=== PATIENT | male | born 1975 | race Hispanic/Latino ===

== ENCOUNTER → 2018-07-19 | Outpatient (CLI) | payer OTHER ==
--- NOTE | 2018-07-20 14:24 | ECHO ---
DATE OF PROCEDURE: 07/19/2018 DATE OF : 1975 AGE: 42 GENDER: Male HEIGHT: 68 inches WEIGHT: 215 pounds BODY SURFACE AREA: 2.11 m2 OUTPATIENT REFERRING PHYSICIAN: Dr. Tuan Gross INDICATION: Hypertensive heart disease. MEASUREMENTS: 2-D Measurements: RV: 4.0 cm LV: 4.8 cm Septum: 1.2 cm Posterior wall: 1.2 cm Aortic root: 3.0 cm LA: 4.0 cm LVEF: 65% Doppler Measurements: AV: 1.24 m/s LVOT: 0.94 m/s LVOT diameter: 2.0 cm MV: E: 65, A: 47, EA ratio: 1.4 Early mitral deceleration time: 197 ms E prime: 5.3, A prime: 9 E/E prime ratio: 12.2 PV: 1.1 m/s Pulmonary artery acceleration time: 158 ms RVSP: 23 mmHg COMMENTS: Normal sinus rhythm without intraventricular conduction disturbance. Slightly challenging study in light of the patient's body habitus but diagnostically useful information was still obtained. M-mode and two-dimensional echocardiography was performed with pulsed, continuous wave, color flow and tissue Doppler studies. Borderline concentric left ventricle hypertrophy with normal wall motion. Mildly dilated left atrium with an impairment of LV diastolic function but currently normal estimated mean left atrial pressure. Normal right heart chamber sizes and motion and estimated pulmonary arterial pressure. His inferior vena cava could not be visualized to accurately estimate his central venous pressure. An assumed central venous pressure of 7 mmHg was used to determine his right ventricular systolic pressure. Normal appearing and functioning valvular structures. Normal aortic root size. No apparent intracardiac mass or pericardial effusion. MTDD
== END ==
LOC: M CARPUL 09:40
PROVIDERS: ATTEND Internal Medicine
DX: I11.9 Hypertensive heart disease without heart failure (principal)

== ENCOUNTER → 2021-05-12 | Outpatient (CLI) | payer OTHER ==
[2021-05-12 10:41] LABS: BASO # 0.1 10^3/uL (0.0-0.2); BASO % 1.2 % (0.0-1.0); EOS # 0.2 10^3/uL (0.0-0.5); EOS % 2.9 % (0.0-3.0); HEMATOCRIT 47.7 % (42.0-52.0); HEMOGLOBIN 15.7 g/dl (13.5-17.5); LYMPH # 2.3 10^3/uL (1.5-5.0); LYMPH % 34.8 % (24.0-44.0); MEAN CORPUSCULAR HEMOGLOBIN 29.1 pg (27.0-33.0); MEAN CORPUSCULAR HGB CONC 32.9 g/dl (32.0-36.5); MEAN CORPUSCULAR VOLUME 88.3 fl (80.0-96.0); MONO # 0.5 10^3/uL (0.0-0.8); MONO % 7.8 % (2.0-8.0); NEUTROPHILS # 3.5 10^3/uL (1.5-8.5); NEUTROPHILS % 52.8 % (36.0-66.0); PLATELET COUNT, AUTOMATED 226 10^3/uL (150-450); WHITE BLOOD COUNT 6.6 10^3/uL (4.0-10.0)
[2021-05-12 12:40] LABS: ALBUMIN 4.2 GM/DL (3.2-5.2); ALT/SGPT 54 U/L (12-78); BILIRUBIN,TOTAL 0.6 MG/DL (0.2-1.0); BLOOD UREA NITROGEN 13 MG/DL (7-18); CALCIUM LEVEL 9.4 MG/DL (8.5-10.1); CARBON DIOXIDE LEVEL 30 MEQ/L (21-32); CHLORIDE LEVEL 108 MEQ/L (98-107); GLOMERULAR FILTRATION RATE > 60.0 (>60); GLUCOSE, FASTING 90 MG/DL (70-100); SODIUM LEVEL 144 MEQ/L (136-145); TOTAL PROTEIN 7.8 GM/DL (6.4-8.2)
[2021-05-13 10:31] LABS: THYROID PEROXIDASE ANTIBODY 31.5 U/ML (<60.0)
== END ==
LOC: M LAB 08:36
PROVIDERS: ATTEND Allergy & Immunology
DX: L50.1 Idiopathic urticaria (principal); R53.81 Other malaise

== ENCOUNTER → 2022-08-16 | Outpatient (REF) | payer OTHER | LOC: M LABSMT 10:44 | PROVIDERS: ATTEND Urology | DX: Z30.2 Encounter for sterilization (principal) ==

== ENCOUNTER 2023-05-16 15:42 | Emergency (ER) | payer OTHER ==
[~2023-05-16] VITALS: Ht 172.7 cm; Wt 97.5 kg
[2023-05-16] MEDS ORDERED: dexAMETHasone 20MG/5ML VIAL IM ONE (16:55)
[2023-05-16] MEDS ORDERED: IBUPROFEN 600MG TAB PO ONE (16:55)
[2023-05-16] MEDS ORDERED: AMOX500T PO (17:01)
[2023-05-16] MEDS ORDERED: AMOXICILLIN 500 MG CAP PO ONE (17:05)
[2023-05-16 17:15] VITALS: BP 141/88; TEMP 99.5; O2SAT 97
== END 2023-05-16 17:16 | disposition home or self-care (01) ==
LOC: M ED 15:42
DX: J02.0 Streptococcal pharyngitis (principal); Z79.2 Long term (current) use of antibiotics
CPT/HCPCS: 87486; 87581; 87633; 87798; 87880; 96372; 99283; J1100

== ENCOUNTER → 2025-03-18 | Outpatient (REF) | payer MEDICAID, OTHER ==
[~2025-03-18] MED LIST: AMOX500T PO; FAMO20TA PO; FEXO-63 PO; HYDR-3363 PO; PRAV80TA75 PO; PRES10CA2 PO; VITA100093 PO
== END ==
LOC: M LAB REF 09:14
PROVIDERS: ATTEND Plastic Surgery Surgery of the Hand
DX: D23.39 Other benign neoplasm of skin of other parts of face (principal)